=== PATIENT | male | born 1965 | race African-American/Black ===

== ENCOUNTER 2024-10-23 04:26 | Emergency (ER) | payer OTHER, SELFPAY ==
--- NOTE | ~2024-10-23 | XR_ITS ---
EXAMINATION: XR hand LT min 3V DATE: 10/23/2024 05:00 INDICATION: Left hand injury and pain. TECHNIQUE: 3 views of left hand were obtained. COMPARISON: None. FINDINGS: Alignment is normal. No fracture. Joint spaces are normal. IMPRESSION: 1. No fracture. Reviewed, dictated and finalized at location A. CEMENTER IMPRESSION: 1. No fracture.
[2024-10-23 04:29] VITALS: BP 157/91; PULSE 100; RESP 16; TEMP 36.9; O2SAT 100
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
[2024-10-23] MEDS: TETANUS,DIPHTHERIA,AC PERTUSSIS ADULT (0.5 ML) BOOSTRIX IM (04:43)
== END 2024-10-23 05:11 | disposition home or self-care (01) ==
PROVIDERS: Emergency Provider Emergency Medicine
DX: S60.512A Abrasion of left hand, initial encounter (principal); W18.40XA Slipping, tripping and stumbling without falling, unspecified, initial encounter; Z23 Encounter for immunization
CPT/HCPCS: 73130; 90471; 90715; 99283